=== PATIENT | male | born 1945 | race Caucasian/White ===

== ENCOUNTER 2017-03-04 20:10 | Emergency (ER) | payer OTHER ==
[~2017-03-04] VITALS: Ht 180.3 cm; Wt 73.9 kg
[~2017-03-04 20:10] MED LIST: LISI-787 PO; NAPR1TAB9 PO
[2017-03-04 20:17] VITALS: TEMP 36.7; Ht 180.3 cm; Wt 73.9 kg
[2017-03-04 20:34] VITALS: O2SAT 92
[2017-03-04] MEDS ORDERED: SODIUM CHLORIDE 0.9% 1000ML 1,000 ML IV STA (20:50)
[2017-03-04] MEDS ORDERED: LIDOCAINE/EPINEPH/TETRACAINE 1 EA SYR EXT STA (20:50)
[2017-03-04] MEDS ORDERED: SODIUM CHLORIDE 0.9% 1000ML 250 ML IV STA (20:50)
[2017-03-04 20:59] LABS: BASO % 0.3 %; BASO ABS # 0.02 K/uL (0-0.2); COMPLETE YES; EOS % 2.7 %; HEMATOCRIT 45.5 % (42-52); IG% 0.1 %; LYMPH % 39.4 %; LYMPH ABS # 2.94 K/uL (1.2-3.4); MEAN CELL VOLUME 82.1 fL (80-100); MEAN CORPUSCULAR HEMOGLOBIN 27.8 pg (25-34); MEAN CORPUSCULAR HGB CONC 33.8 g/dl (32-36); MONO % 8.6 %; NEUT % 48.9 %; PLATELET COUNT 204 K/uL (130-400); RED BLOOD COUNT 5.54 M/uL (4.7-6.1); WHITE BLOOD COUNT 7.47 K/uL (4.8-10.8)
--- NOTE | 2017-03-04 21:05 | DIAGNOSTIC IMAGING REPORT ---
CHEST ONE VIEW PORTABLE CLINICAL HISTORY: Atypical chest pain. Syncope. Head trauma. COMPARISON STUDY: 12/01/2014 FINDINGS: The left-sided chest tube has been removed. There is no pneumothorax. The heart is normal in size. There is no failure. There is no focal pulmonary consolidation. There are no pleural effusions.[ IMPRESSION: No active disease in the chest. Electronically signed by: Yosvany Calloway M.D. 03/04/2017 9:03 PM Dictated Date/Time: 03/04/2017 9:03 PM
[2017-03-04 21:06] LABS: PARTIAL THROMBOPLASTIN RATIO 1.1; PROTHROMBIN TIME (PATIENT) 10.7 SECONDS (9.0-12.0)
[2017-03-04 21:14] LABS: BUN/CREATININE RATIO 18.5 (10-20); CKMB/CK RATIO 1.6 (0-3.0); CREATININE 1.7 mg/dl (0.60-1.40)
--- NOTE | 2017-03-04 21:15 | DIAGNOSTIC IMAGING REPORT ---
CT HEAD WITHOUT CONTRAST (CT) CLINICAL HISTORY: Head pain. Head trauma. Syncope. COMPARISON STUDY: 07/04/2007 TECHNIQUE: Axial CT of the brain is performed from the vertex to the skull base. IV contrast was not administered for this examination. CT DOSE: 537.48 mGy.cm FINDINGS: No intra or extra-axial mass lesions are visualized. There is no CT evidence of acute cortical infarction. There is no evidence of midline shift. There is no acute hemorrhage. No calvarial fractures are visualized. There are minimal white matter hypodensities likely on a small vessel basis. There is no evidence of pathologic ventricular dilatation. There is no evidence of acute sinusitis IMPRESSION: No acute intracranial findings Electronically signed by: Yosvany Calloway M.D. 03/04/2017 9:14 PM Dictated Date/Time: 03/04/2017 9:13 PM
[2017-03-04 21:24] LABS: POINT OF CARE PRO-BNP 20 pg/ml (0-900); POINT OF CARE TROPONIN I < 0.030 ng/ml (0-0.045)
[2017-03-04 21:29] LABS: BETA-HYDROXYBUTYRATE 0.89 mg/dL (0.2-2.81)
[2017-03-04 21:54] LABS: CALCIUM 9.3 mg/dl (8.5-10.1)
[2017-03-04] MEDS ORDERED: XYLOCAINE 1%/SOD BICARB 20 ML VIAL INFIL ONE (22:56)
[2017-03-04 23:20] VITALS: BP 132/65; PULSE 84; O2SAT 93
--- NOTE | 2017-03-04 23:31 | EMERGENCY ROOM VISIT NOTE ---
History Report prepared by Earnestine: Hortencia Rankin Under the Supervision of: Dr. Matthew Castro M.D. First contact with patient: 20:40 Chief Complaint: SYNCOPE Stated Complaint: PASSED OUT AND HIT HEAD Nursing Triage Summary: Pt reports he was sitting on the porch and got up to go into the house. When he entered the house he became dizzy and blacked out. Pt hit his face off a chair. Pt reports this is the 2nd time he has passed out in a month. Pt has deep laceration to left eyebrow. 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 He got up and walked back into the house when he started feeling dizzy like he might pass out. He then lost consciousness and hit his head. He was feeling normal earlier. He denies any chest pain or SOB before passing out. He currently has a headache. His notes that he does not seem confused. His vision is normal. He denies any neck pain or other injuries. He denies any new numbness or weakness. He had an episode of syncope 1 month ago. He has not seen a doctor it. He notes that his left side has been weaker than his right side for several years now. His thinks that he might have had a mini stroke in the past. He had some facial droop and slurring of words, but upon visiting the hospital they did not find that he had a stroke. He has a history of smoking. He is not on any blood thinners. He has a history of hypertension. He does not have a diagnosis of diabetes. 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 Pt denies vision changes. Review of Systems See HPI for pertinent positives & negatives. A total of 10 systems reviewed and were otherwise negative. Past Medical & Surgical Medical Problems: (1) Asthma (2) Hypertension Nos Old medical records were reviewed. Nurse's notes were reviewed and I agree with. Family History No significant family history Social History Smoking Status: Never Smoker Marital Status: Housing Status: lives with significant other Current/Historical Medications Scheduled Lisinopril/Hctz (Zestoretic 20MG/12.5MG), 1 TAB PO DAILY Scheduled PRN Naproxen (Aleve), 440 MG PO DAILY PRN for Pain Allergies Coded Allergies: No Known Allergies (Unverified , 12/01/14) Physical Exam Vital Signs Date Time Temp Pulse Resp B/P (MAP) Pulse Ox O2 Delivery O2 Flow Rate FiO2 03/04/17 23:20 84 18 132/65 93 03/04/17 22:18 74 16 115/82 94 Nasal Cannula 2.0 03/04/17 21:21 92 16 139/70 91 Room Air 03/04/17 20:49 94 03/04/17 20:34 92 Room Air 03/04/17 20:17 36.7 103 18 128/72 93 Room Air Physical Exam General: Non ill appearing older male. Well developed well nourished in no acute distress, breathing comfortably on room air. Normal speech. GCS of 15. HEENT: Normal cephalic. 2.5 cm laceration above the left eye, no active bleeding. Pupils are equal round and reactive to light. Extraocular movements are intact. Oropharynx is pink with moist mucous membranes. No swelling of the mouth lips or tongue. Neck: Supple with a midline trachea. No meningeal signs or stiffness, no JVD or bruits. No Stridor. Chest: Clear to auscultation bilaterally. No wheezes or rhonchi. No increased work of breathing. Heart: regular rate and rhythm. Abdomen: Soft nontender, nondistended without rebound guarding or rigidity. Extremities: No cyanosis clubbing or edema. No calf tenderness or assymetry Spine/Back. Non tender to palpation. No CVA tenderness Skin: Good turgor without rashes. Neurologic exam: Cranial nerves two through 12 are intact. Motor and sensation are intact and symmetrical throughout. Medical Decision & Procedures ER Provider Diagnostic Interpretation: X-ray results as stated below per interpretation by me and the radiologist. Radiology results as stated below per my review and radiologist interpretation: CHEST ONE VIEW PORTABLE CLINICAL HISTORY: Atypical chest pain. Syncope. Head trauma. COMPARISON STUDY: 12/01/2014 FINDINGS: The left-sided chest tube has been removed. There is no pneumothorax. The heart is normal in size. There is no failure. There is no focal pulmonary consolidation. There are no pleural effusions.[ IMPRESSION: No active disease in the chest. Electronically signed by: Yosvany Calloway M.D. 03/04/2017 9:03 PM Dictated Date/Time: 03/04/2017 9:[address] HEAD WITHOUT CONTRAST (CT) CLINICAL HISTORY: Head pain. Head trauma. Syncope. COMPARISON STUDY: 07/04/2007 TECHNIQUE: Axial CT of the brain is performed from the vertex to the skull base. IV contrast was not administered for this examination. CT DOSE: 537.48 mGy.cm FINDINGS: No intra or extra-axial mass lesions are visualized. There is no CT evidence of acute cortical infarction. There is no evidence of midline shift. There is no acute hemorrhage. No calvarial fractures are visualized. There are minimal white matter hypodensities likely on a small vessel basis. There is no evidence of pathologic ventricular dilatation. There is no evidence of acute sinusitis IMPRESSION: No acute intracranial findings Electronically signed by: Yosvany Calloway M.D. 03/04/2017 9:14 PM Dictated Date/Time: 03/04/2017 9:13 PM Laboratory Results 03/04/17 20:30 Red Blood Count 5.54, Mean Corpuscular Volume 82.1, Mean Corpuscular Hemoglobin 27.8, Mean Corpuscular Hemoglobin Concent 33.8, Mean Platelet Volume 11.0, Neutrophils (%) (Auto) 48.9, Lymphocytes (%) (Auto) 39.4, Monocytes (%) (Auto) 8.6, Eosinophils (%) (Auto) 2.7, Basophils (%) (Auto) 0.3, Neutrophils # (Auto) 3.66, Lymphocytes # (Auto) 2.94, Monocytes # (Auto) 0.64, Eosinophils # (Auto) 0.20, Basophils # (Auto) 0.02 03/04/17 20:30 Test 03/04/17 20:30 03/04/17 21:05 White Blood Count 7.47 K/uL (4.8-10.8) Red Blood Count 5.54 M/uL (4.7-6.1) Hemoglobin 15.4 g/dL (14.0-18.0) Hematocrit 45.5 % (42-52) Mean Corpuscular Volume 82.1 fL (80-100) Mean Corpuscular Hemoglobin 27.8 pg (25-34) Mean Corpuscular Hemoglobin Concent 33.8 g/dl (32-36) Platelet Count 204 K/uL (130-400) Mean Platelet Volume 11.0 fL (7.4-10.4) Neutrophils (%) (Auto) 48.9 % Lymphocytes (%) (Auto) 39.4 % Monocytes (%) (Auto) 8.6 % Eosinophils (%) (Auto) 2.7 % Basophils (%) (Auto) 0.3 % Neutrophils # (Auto) 3.66 K/uL (1.4-6.5) Lymphocytes # (Auto) 2.94 K/uL (1.2-3.4) Monocytes # (Auto) 0.64 K/uL (0.11-0.59) Eosinophils # (Auto) 0.20 K/uL (0-0.5) Basophils # (Auto) 0.02 K/uL (0-0.2) RDW Standard Deviation 38.5 fL (36.4-46.3) RDW Coefficient of Variation 12.7 % (11.5-14.5) Immature Granulocyte % (Auto) 0.1 % Immature Granulocyte # (Auto) 0.01 K/uL (0.00-0.02) Prothrombin Time 10.7 SECONDS (9.0-12.0) Prothromb Time International Ratio 1.0 (0.9-1.1) Activated Partial Thromboplast Time 29.4 SECONDS (21.0-31.0) Partial Thromboplastin Ratio 1.1 Anion Gap 9.0 mmol/L (3-11) Est Creatinine Clear Calc Drug Dose 42.3 ml/min Estimated GFR () 46.3 Estimated GFR (Non- 40.0 BUN/Creatinine Ratio 18.5 (10-20) Calcium Level 9.3 mg/dl (8.5-10.1) Total Creatine Kinase 51 U/L (39-308) Creatine Kinase MB 0.8 ng/ml (0.5-3.6) Creatine Kinase MB Ratio 1.6 (0-3.0) Beta-Hydroxybutyric Acid 0.89 mg/dL (0.2-2.81) Bedside Troponin I < 0.030 ng/ml (0-0.045) UL-Gar-F-Type Natriuretic Peptide 20 pg/ml (0-900) Laboratory studies as stated above per my review. Medications Administered Medications (Trade) Dose Ordered Sig/Deb Route Start Time Stop Time Status Last Admin Dose Admin Sodium Chloride 250 ml @ 999 mls/hr Q16M STAT IV 03/04/17 20:50 03/04/17 21:05 DC 03/04/17 21:20 999 MLS/HR Sodium Chloride 1,000 ml @ 100 mls/hr Q10H STAT IV 03/04/17 20:50 03/05/17 00:33 DC 03/04/17 21:20 100 MLS/HR Tetracaine/ Epinephrine/ Lidocaine (L.e.t. Gel 4%/ 1:100/0.5%) 1 ea NOW STAT EXT 03/04/17 20:50 03/04/17 20:53 DC 03/04/17 21:20 1 EA ECG Indication: syncope Rate (beats per minute): 100 Rhythm: normal sinus Findings: no acute ischemic change, no ectopy Comparison ECG Date: 01-Dec-2014 Change: no significant change ED Course 2040: Past medical records reviewed. The patient was evaluated in room C9, and a complete history and physical examination were performed. 2049: LET Gel 4%/1:100/0.5% 1 ea EXT, NSS 1000 ml @ 100 mls/hr IV, NSS 250 ml @ 999 mls/hr IV. 2249: I reevaluated the patient. He is asking to leave and does not want to stay. The PA has sutured the laceration. I spoke with him and told him that he could be having problems with arrhythmia, heart problems, stroke and that he should stay but he refuses. 2252: I reevaluated the patient. He refuses insult. I discussed the results and treatment plan with him. He verbalized agreement of the treatment plan. He will follow up with his PCP. The patient was discharged home. Medical Decision Differentials include, but are not limited to; syncope, trauma, arrhythmia, laceration, electrolyte or metabolic abnormality. Medication Reconciliation: I attest that I have personally reviewed the patient' s current medication list. Blood pressure Screening: Patient was found to have an elevated blood pressure and was referred to their primary doctor for recheck and further treatment. This patient comes in as described above. He was placed in room C9 he has syncopal episode. He has a laceration on his face above his left eye which was repaired by Abdulkadir my PA. The patient has an up-to-date tetanus booster. The patient is asymptomatic and has been asking to go home during his entire stay here. EKG was unremarkable. CAT scan his has unremarkable. He has nothing to suggest congestive heart failure, pneumonia or pneumothorax. He is mildly hypoxemic however is a smoker and appears in no distress. His glucose was elevated just above 400 and I told him that he does have diabetes. It appears that he has type II. He is non-acidotic. I offered to start him on something but he declines and just wants to get out of here and follow-up with his doctor tomorrow. I told him that I'm concerned given a syncope and I recommend that we do admit him for observation to rule out cardiac disease, neurologic disease and give him further treatment has diabetes but he adamantly declines and just wants to go home. He assures me a follow-up with his doctor tomorrow and his also agrees. I told the patient that he could have a heart attack or stroke or other status severe health condition but still declines admission. The patient was discharged to home. He should return in 5 days for suture removal sooner if any new problems or concerns and again follow-up with his doctor tomorrow. Impression Primary Impression: Syncope Additional Impressions: Hyperglycemia Scalp laceration Scribe Attestation The scribe's documentation has been prepared under my direction and personally reviewed by me in its entirety. I confirm that the note above accurately reflects all work, treatment, procedures, and medical decision making performed by me. Departure Information Dispostion Home / Self-Care Referrals Delon Paniagua M.D.([facility]) (PCP) Forms HOME CARE DOCUMENTATION FORM, IMPORTANT VISIT INFORMATION Patient Instructions My [facility] Additional Instructions Rest. Drink plenty of fluids. Be careful getting up and down. See your doctor tomorrow. Your blood sugar is elevated and you have diabetes and will need to be started on medications. Return to the ER in 5 days for suture removal or see your regular doctor. Return to the ER if: Chest pain, shortness of breath, numbness or weakness, abdominal pain, any new problems or concerns. Problem Qualifiers
--- NOTE | 2017-03-05 02:38 | EMERGENCY ROOM VISIT NOTE ---
ED Visit Note Patient was seen and fully evaluated by Dr. Castro. I was asked to perform primary wound closure of the patient's laceration which was overlying the left superior orbital region. Risks and benefits of performing primary wound closure versus no repair were discussed with the patient who verbalizes understanding. Verbal consent was obtained prior to performing the procedure. 5 cc of 1% buffered lidocaine with epinephrine was used to anesthetize the 4 cm laceration. The wound was cleansed and prepped in the typical sterile fashion utilizing normal saline and Betadine. The wound was sterilely draped. Once proper anesthetization was established, the wound was further examined and demonstrated deeper involvement. The wound was copiously irrigated with normal saline and Betadine. The wound was closed using 1 simple, 4-0 Vicryl suture and 4 simple, 6-0 nylon sutures with the wound edges being well approximated. Patient tolerated the procedure well. No complications were met. The wound was cleansed and dressed with a Bacitracin dressing. Estimated blood loss: 2mL
== END 2017-03-04 23:20 | disposition home or self-care (01) ==
LOC: C.EDB 20:10 → C.EDC 23:20
DX: S01.81XA Laceration without foreign body of other part of head, initial encounter (principal); W19.XXXA Unspecified fall, initial encounter; Y92.019 Unspecified place in single-family (private) house as the place of occurrence of the external cause; R55 Syncope and collapse; R73.9 Hyperglycemia, unspecified; I10 Essential (primary) hypertension; J45.909 Unspecified asthma, uncomplicated; Z87.891 Personal history of nicotine dependence; Z79.899 Other long term (current) drug therapy